=== PATIENT | male | born 1985 | race African-American/Black ===

== ENCOUNTER 2018-09-10 02:38 | Emergency (ER) | payer SELFPAY ==
--- NOTE | 2018-09-10 06:34 | ER Document Report ---
ED General - General Chief Complaint: Chest Pain Stated Complaint: CHEST PAIN Time Seen by Provider: 09/10/18 06:08 Notes: Patient is a 33-year-old male that presents to the emergency department for chief complaint of chest pain. The patient reports that the pain started Thursday or Thursday of this week. The currently rate the pain as 4 out of 10, and described as achiness and occasionally sharp stabbing sensation on the right side of the chest, lasting only a few moments and then going away on its own. Denies any associated shortness of breath, diaphoresis, difficulty breathing, nausea or vomiting. Patient denies any risk factors for coronary artery disease such as family history, smoking history, hyperlipidemia, hypertension, or diabetes. He denies any recent prolonged immobilization, no recent surgeries , or leg swelling. Past Medical History: Denies chronic medical conditions Past Surgical History: Denies surgical history Social History: Denies tobacco, alcohol or drug use. Family History: Reviewed and noncontributory for presenting illness Allergies: Reviewed, see documented allergy list. REVIEW OF SYSTEMS: Other than noted above, the 12 point review of systems was reviewed with the patient and were negative, all pertinent findings are included in the HPI. PHYSICAL EXAMINATION: Vital signs reviewed, nursing noted reviewed. GENERAL: Well-appearing, well-nourished and in no acute distress. HEAD: Atraumatic, normocephalic. EYES: Eyes appear normal, extraocular movements intact, sclera anicteric, conjunctiva are normal. ENT: nares patent, oropharynx clear without exudates. Moist mucous membranes. NECK: Normal range of motion, supple without lymphadenopathy LUNGS: Breath sounds clear to auscultation bilaterally and equal. No wheezes rales or rhonchi. HEART: Regular rate and rhythm without murmurs ABDOMEN: Soft, nontender, normoactive bowel sounds. No rebound, guarding, or rigidity. No masses appreciated. EXTREMITIES: Nontender, good range of motion, no pitting or edema. NEUROLOGICAL: No focal neurological deficits. Moves all extremities spontaneously Motor and sensory grossly intact on exam. PSYCH: Normal mood, normal affect. SKIN: Warm, Dry, normal turgor, no rashes or lesions noted on exposed skin - Related Data Allergies/Adverse Reactions: No Known Allergies Allergy (Verified 09/10/18 02:44) Past Medical History - Social History Smoking Status: Never Smoker Family History: Reviewed & Not Pertinent Physical Exam - Vital signs Vitals: Temp Pulse Resp BP Pulse Ox 98.1 F 64 17 138/74 H 100 09/10/18 02:43 09/10/18 02:43 09/10/18 02:43 09/10/18 02:43 09/10/18 02:43 Course - Re-evaluation Re-evalutation: Presentation of chest pain in an otherwise well appearing patient. Low clinical suspicion for ACS given clinical history, exam, EKG without ST elevations or depressions, and negative initial troponin. HEART score less than or equal to 3. PE also seems unlikely given clinical history, absence of tachycardia or dyspnea. Patient is PERC criteria negative. CXR without evidence of pneumothorax or pneumonia. No widened mediastinum. Aortic dissection also seems unlikely given history, symmetric pulses, CXR, and vitals. HEART Score: History 0 ECG 0 Age 0 Risk Factors 0 Troponin 0 Total: 0 Chest pain in a patient without evidence of cardiac or other serious etiology on workup today. I discussed with patient that, based on their age, risk factors and emergency department testing today, the likelihood that their symptoms are related to a heart attack is very low (estimated risk of heart attack or over the next 30 days of less than 1%). The patient demonstrates decision making capacity and has verbalized an understanding of these risks to me. Based on this, the patient has chosen to follow-up as an outpatient. Usual chest pain return precautions reviewed. The patient states understanding and agreement with this plan. - Vital Signs Vital signs: Temp Pulse Resp BP Pulse Ox 98.1 F 64 16 119/83 99 09/10/18 02:43 09/10/18 02:43 09/10/18 08:01 09/10/18 08:01 09/10/18 08:01 - Laboratory Result Diagrams: 09/10/18 06:42 09/10/18 06:42 Laboratory results interpreted by me: 09/10/18 06:42 Seg Neutrophils % 37.4 L Lymphocytes % 46.3 H Eosinophils % 6.7 H - EKG Interpretation by Me Additional EKG results interpreted by me: EKG demonstrates sinus rhythm with a ventricular rate of 67 bpm, normal axis, normal intervals, there is early repolarization noted, no evidence of acute ischemia. Discharge - Discharge Clinical Impression: Chest pain Qualifiers: Chest pain type: unspecified Qualified Code(s): R07.9 - Chest pain, unspecified Condition: Stable Disposition: HOME, SELF-CARE Instructions: Chest Pain of Unclear Cause ([facility]) Additional Instructions: Please follow-up with the primary care physician, you have been provided a prescription for Pepcid to see if this will help with some your symptoms if it is related to esophageal reflux disease, if it is not improving or if you have any further concerns, do not hesitate to return to the emergency department. Prescriptions: Famotidine [Pepcid 20 mg Tablet] 20 mg PO BID #30 tablet Referrals: LAILA TRAVIS MD [ACTIVE STAFF] - Follow up in 3-5 days (primary care.)
--- NOTE | 2018-09-10 06:41 | RADIOLOGY REPORT (SQ) ---
EXAM DESCRIPTION: XR CHEST 1 VIEW COMPLETED DATE/TME: 09/10/2018 06:08 CLINICAL HISTORY: 33 years, Male, chest pain COMPARISON: None. NUMBER OF VIEWS: 1 TECHNIQUE: Frontal view the chest LIMITATIONS: None. FINDINGS: Heart size is normal. Lungs are clear. No pneumothorax IMPRESSION: Negative chest copyright 2010 [employer]- All Rights Reserved
[2018-09-10 07:00] LABS: ABSOLUTE EOSINOPHILS # (AUTO) 0.4 10^3/uL (0.0-0.6); ABSOLUTE LYMPHOCYTES (AUTO) 2.6 10^3/uL (0.5-4.7); ABSOLUTE MONOCYTES (AUTO) 0.5 10^3/uL (0.1-1.4); ABSOLUTE NEUT (AUTO) 2.1 10^3/uL (1.7-8.2); BASOPHILS % (AUTO) 0.6 % (0-2); EOSINOPHILS % (AUTO) 6.7 % (0-6); HEMATOCRIT 40.8 % (37.9-51.0); HEMOGLOBIN 14.3 g/dL (13.5-17.0); LYMPHOCYTES % (AUTO) 46.3 % (13-45); MEAN CORPUSCULAR HEMOGLOBIN 31.4 pg (27.0-33.4); MEAN CORPUSCULAR HGB CONC 35.2 g/dL (32.0-36.0); MEAN CORPUSCULAR VOLUME 89 fl (80-97); PLATELET COUNT 187 10^3/uL (150-450); RED BLOOD COUNT 4.57 10^6/uL (4.35-5.55); RED CELL DISTRIBUTION WIDTH 13.2 % (11.5-14.0); SEGMENTED NEUTROPHILS % (AUTO) 37.4 % (42-78); TOTAL CELLS COUNTED % (AUTO) 100 %; WHITE BLOOD COUNT 5.7 10^3/uL (4.0-10.5)
[2018-09-10 07:18] LABS: ALANINE AMINOTRANSFERASE 34 U/L (21-72); ALBUMIN 4.3 g/dL (3.5-5.0); ALKALINE PHOSPHATASE 77 U/L (38-126); ANION GAP 10 (5-19); ASPARTATE AMINO TRANSFERASE 35 U/L (17-59); BILIRUBIN,DIRECT 0.3 mg/dL (0.0-0.4); BILIRUBIN,TOTAL 0.5 mg/dL (0.2-1.3); BLOOD UREA NITROGEN 9 mg/dL (7-20); CALCIUM 9.6 mg/dL (8.4-10.2); CARBON DIOXIDE 28 mmol/L (22-30); CHLORIDE 104 mmol/L (98-107); CREATINE KINASE 124 U/L (55-170); GLUCOSE 95 mg/dL (75-110); SODIUM 141.7 mmol/L (137-145); TOTAL PROTEIN 7.1 g/dL (6.3-8.2)
[2018-09-10 07:29] LABS: CREATINE KINASE MB 0.37 ng/mL (<4.55)
[2018-09-10 07:31] LABS: TROPONIN I < 0.012 ng/mL
[2018-09-10 08:12] VITALS: BP 119/83
--- NOTE | 2018-09-10 10:04 | EKG REPORT ---
SEVERITY:- NORMAL ECG - SINUS RHYTHM : Confirmed by: Miriam Gandhi MD 10-Sep-2018 10:03:26
== END 2018-09-10 08:12 | disposition home or self-care (01) ==
LOC: ER 02:38
DX: R07.9 Chest pain, unspecified (principal)
CPT/HCPCS: 36415; 71045; 80053; 82550; 82553; 84484; 85025; 93005; 93010; 99285